=== PATIENT | male | born 1995 | race African-American/Black ===

== ENCOUNTER 2019-08-05 06:57 | Emergency (ER) | payer OTHER ==
[~2019-08-05] VITALS: Ht 167.6 cm; Wt 68.0 kg
[2019-08-05 07:05] VITALS: Ht 167.6 cm; Wt 68.0 kg
[2019-08-05 09:01] LABS: CALCIUM 8.6 mg/dL (8.5-10.1); CHLORIDE SERUM 105 mmol/L (98-107); CREATININE SERUM 0.7 mg/dL (0.7-1.3); GFR1 > 60 mL/min; GLUCOSE SERUM 91 mg/dL (74-106); POTASSIUM SERUM 3.8 mmol/L (3.5-5.1); SODIUM SERUM 140 mmol/L (136-145)
[2019-08-05 09:13] LABS: AMPHETAMINE QUAL UR NONE DETECTED (See below)
[2019-08-05 09:13] LABS: ALBUMIN 3.6 g/dL (3.4-5.0); ALKALINE PHOSPHATASE 56 U/L (46-116); ALT/SGPT 14 U/L (16-63); AST/SGOT 17 U/L (15-37); BILIRUBIN TOTAL 0.4 mg/dL (0.20-1.00); T4(THYROXINE) 6.6 ug/dL (4.7-13.3); TOTAL PROTEIN, SERUM 7.3 g/dL (6.4-8.2)
[2019-08-05 09:24] LABS: PLATELET COUNT 267 x10^3mcL (130-400)
[2019-08-05 10:44] VITALS: BP 141/86
== END 2019-08-05 10:44 | disposition home or self-care (01) ==
LOC: ED 06:57
PROVIDERS: Emergency Medicine
DX: E16.1 Other hypoglycemia (principal); R53.1 Weakness
CPT/HCPCS: 36415; 82962; G0480